=== PATIENT | female | born 1975 | race Hispanic/Latino ===

== ENCOUNTER → 2018-04-15 | Outpatient (CLI) | payer OTHER, MEDICARE | END | disposition home or self-care (01) | LOC: RAH 07:41 | PROVIDERS: ATTEND Family Medicine | DX: K76.0 Fatty (change of) liver, not elsewhere classified (principal); N83.209 Unspecified ovarian cyst, unspecified side; B18.2 Chronic viral hepatitis C; Z90.49 Acquired absence of other specified parts of digestive tract | CPT/HCPCS: 76700; 76856 ==

== ENCOUNTER → 2018-04-23 | Outpatient (CLI) | payer OTHER, MEDICARE | END | disposition home or self-care (01) | LOC: RAH 13:39 | PROVIDERS: ATTEND Family Medicine | DX: Z12.31 Encounter for screening mammogram for malignant neoplasm of breast (principal) | CPT/HCPCS: 77067 ==

== ENCOUNTER 2018-10-13 17:31 | Emergency (ER) | payer OTHER, MEDICARE ==
[2018-10-13] MEDS ORDERED: IBUPROFEN 600 MG TABLET ONE (17:59)
[2018-10-13] MEDS ORDERED: ACETAMINOPHEN EXTRA STRENGTH 500 MG TABLET ONE (17:59)
[2018-10-13 18:07] LABS: BILIRUBIN,URINE Negative (NEGATIVE); COLOR,URINE Yellow (YELLOW); GLUCOSE, URINE (UA) Negative (NEGATIVE); KETONES,URINE Trace mg/dL (NEGATIVE); LEUKOCYTE ESTERASE ,URINE Moderate (NEGATIVE); NITRATE,URINE Positive (NEGATIVE); OCCULT BLOOD,URINE Moderate (NEGATIVE); PH,URINE 6.5 (5.0-8.0); PROTEIN,URINE POS 2+ (NEGATIVE)
[2018-10-13 18:10] LABS: APPEARANCE,URINE SLIGHTLY CLOUDY (CLEAR)
[2018-10-13 18:11] LABS: HCG,QUAL RESULT NEGATIVE (NEGATIVE)
[2018-10-13 18:14] LABS: BACTERIA,URINE Few /HPF (None Seen)
[2018-10-13 18:15] LABS: SQUAMOUS EPITHELIAL CELL,UR Moderate /HPF (0-2)
[2018-10-13 18:18] LABS: YEAST,URINE BUDDING Rare /HPF (None Seen)
[2018-10-13] MEDS ORDERED: CEFTRIAXONE SODIUM 1 GM ONE (18:27)
[2018-10-13] MEDS ORDERED: LIDOCAINE HCL-MPF 1% 2ML VIAL ONE (18:27)
[2018-10-13] MEDS ORDERED: ONDANSETRON ODT 4 MG TAB ONE (18:28)
== END 2018-10-13 18:54 | disposition home or self-care (01) ==
LOC: EDH 17:31
DX: N39.0 Urinary tract infection, site not specified (principal); R50.9 Fever, unspecified; Z72.0 Tobacco use
CPT/HCPCS: 81001; 81025; 87077; 87088; 87186; 96372; 99284; J0696; J3490

== ENCOUNTER 2020-08-01 16:38 | Emergency (ER) | payer OTHER, MEDICARE ==
[2020-08-01 18:26] LABS: APPEARANCE,URINE CLOUDY (CLEAR); BILIRUBIN,URINE NEGATIVE (NEGATIVE); COLOR,URINE YELLOW (YELLOW); GLUCOSE, URINE (UA) NEGATIVE (NEGATIVE); KETONES,URINE 5 mg/dL (NEGATIVE); LEUKOCYTE ESTERASE ,URINE SMALL (NEGATIVE); NITRATE,URINE POSITIVE (NEGATIVE); OCCULT BLOOD,URINE LARGE (NEGATIVE); PROTEIN,URINE TRACE mg/dL (NEGATIVE); UROBILINOGEN,URINE 0.2 mg/dL (0.2-1.0)
[2020-08-01 18:34] LABS: BACTERIA,URINE Moderate /HPF (None Seen); SQUAMOUS EPITHELIAL CELL,UR Moderate /HPF (0-2)
[2020-08-01 18:35] LABS: MUCUS,URINE Rare LPF (None Seen)
[2020-08-01 18:45] LABS: HCG,QUAL RESULT NEGATIVE (NEGATIVE)
[2020-08-01] MEDS ORDERED: IBUPROFEN 400 MG TABLET ONE (19:22)
== END 2020-08-01 19:30 | disposition home or self-care (01) ==
LOC: EDH 16:38
DX: G44.209 Tension-type headache, unspecified, not intractable (principal); M79.7 Fibromyalgia; Z98.51 Tubal ligation status; Z88.8 Allergy status to other drugs, medicaments and biological substances; Z72.0 Tobacco use; Z90.49 Acquired absence of other specified parts of digestive tract
CPT/HCPCS: 81001; 81025; 87077; 87088; 87186

== ENCOUNTER → 2021-11-04 | Outpatient (CLI) | payer OTHER, MEDICARE ==
[~2021-11-04] MED LIST: ALBUTEROL 0.083% 2.5 MG/3 ML INH IH ONE
== END | disposition home or self-care (01) ==
LOC: RAH 15:26
PROVIDERS: ATTEND Family Medicine
DX: Z12.31 Encounter for screening mammogram for malignant neoplasm of breast (principal)
CPT/HCPCS: 77067

== ENCOUNTER → 2023-09-18 | Outpatient (CLI) | payer OTHER, MEDICARE | END | disposition home or self-care (01) | LOC: RAH 10:02 | PROVIDERS: ATTEND Family Medicine | DX: Z12.31 Encounter for screening mammogram for malignant neoplasm of breast (principal) | CPT/HCPCS: 77067 ==